=== PATIENT | female | born 1995 | race Caucasian/White ===

== ENCOUNTER → 2016-12-21 | Outpatient (CLI) | payer BC ==
[~2016-12-21] VITALS: Ht 162.6 cm; Wt 71.0 kg
[~2016-12-21] MED LIST: FLEXERIL5 MG PO; LO-DOSE ASPIRIN81 M2 PO; LOVENOX40 MG/0.4 SC; PRENATAL TABLE1 EAC3 PO; SERTRALINE HCL50 MG PO
[2016-12-21 15:56] VITALS: BP 128/80
== END | disposition home or self-care (01) ==
LOC: IVINF 15:48
DX: O36.0990 Maternal care for other rhesus isoimmunization, unspecified trimester, not applicable or unspecified (principal); Z3A.00 Weeks of gestation of pregnancy not specified
CPT/HCPCS: 96372; J2790

== ENCOUNTER 2017-01-26 16:26 | Emergency (ER) | payer OTHER, BC ==
[~2017-01-26] VITALS: Ht 162.6 cm; Wt 79.8 kg
[2017-01-26 16:50] LABS: HEMATOCRIT 35.7 % (36.0-46.0); MCHC 31.7 G/DL (30.0-36.0); MCV 82.3 FL (83-99); MEAN PLAT.VOLUME 9.9 uM^3 (9.5-12.4); PLATELET COUNT 273 K/uL (156-360); RBC DIS.WIDTH-CV 13.5 % (11.8-14.6); RBC DIS.WIDTH-SD 40.3 % (39-53); RED BLOOD COUNT 4.34 M/uL (3.80-5.20); WHITE BLOOD COUNT 12.1 K/uL (4.1-10.2)
[2017-01-26 17:10] LABS: CHLORIDE 108 mEq/L (99-109); POTASSIUM 3.6 mEq/L (3.7-5.4); SODIUM 137 mEq/L (136-147)
[2017-01-26 17:11] LABS: GLUCOSE 69 mg/dL (70-99)
[2017-01-26 17:13] LABS: ANION GAP 9 MEQ/L (2-14)
[2017-01-26 17:19] LABS: GFR ESTIMATE (CALCULATED) > 59 mL/min/; UREA NITROGEN (BUN) 6 mg/dL (9-23)
[2017-01-26 17:20] LABS: TROP-I INTERPRETATION NEGATIVE; TROPONIN-I < 0.01 ng/mL (0.0-0.30)
[2017-01-26 17:46] LABS: INTER. NORMALIZED RATIO 0.9; PTT 25.9 (25-32)
[2017-01-26 17:54] LABS: D-DIMER ELISA > 4.00 mg/L FEU (< 0.57)
[2017-01-26 17:55] LABS: PROTHROMBIN TIME 9.2 (9.2-11.2)
[2017-01-26 22:35] VITALS: BP 116/81
== END 2017-01-26 22:40 | disposition home or self-care (01) ==
LOC: EME 16:26
PROVIDERS: Emergency Medicine
DX: O99.013 Anemia complicating pregnancy, third trimester (principal); D64.9 Anemia, unspecified; O26.93 Pregnancy related conditions, unspecified, third trimester; R06.02 Shortness of breath; R07.9 Chest pain, unspecified; E87.6 Hypokalemia; D72.829 Elevated white blood cell count, unspecified; Z3A.34 34 weeks gestation of pregnancy; D68.2 Hereditary deficiency of other clotting factors; O99.113 Other diseases of the blood and blood-forming organs and certain disorders involving the immune mechanism complicating pregnancy, third trimester; Z88.6 Allergy status to analgesic agent; Z98.84 Bariatric surgery status; Z79.82 Long term (current) use of aspirin; Z79.01 Long term (current) use of anticoagulants
CPT/HCPCS: 71275; 80048; 84484; 85027; 85379; 85610; 85730; 93005; 93970; 99281; 99285; J7120

== ENCOUNTER 2017-02-09 17:12 | Outpatient (CLI) | payer OTHER, BC ==
[~2017-02-09] VITALS: Ht 162.6 cm; Wt 72.7 kg
[2017-02-09 17:35] VITALS: BP 119/77
[2017-02-09] MEDS ORDERED: IRON325 M1 PO (17:58)
[2017-02-09] MEDS ORDERED: [UNRECOGNIZED DRUG - OTHER] PO (18:06)
[2017-02-09 18:55] LABS: EOSINOPHIL (%) 0.6 % (0-5); EOSINOPHIL COUNT 0.1 K/uL (0-0.3); IMMATURE GRANULOCYTE (%) 0.4 % (0.0-0.7); INSTRUMENT ABS NEUTROPHIL CT 7.4 K/uL; MCH 25.7 PG (29.0-34.0); MCHC 31.8 G/DL (30.0-36.0); MCV 80.8 FL (83-99); MEAN PLAT.VOLUME 10.3 uM^3 (9.5-12.4); MONOCYTE (%) 7.3 % (3-12); MONOCYTE COUNT 0.8 K/uL (0-0.8); NEUTROPHIL (%) 72.4 % (45-76); NEUTROPHIL COUNT 7.4 K/uL (1.8-6.4); PLATELET COUNT 278 K/uL (156-360); RBC DIS.WIDTH-CV 13.6 % (11.8-14.6); RBC DIS.WIDTH-SD 39.5 % (39-53); RED BLOOD COUNT 4.21 M/uL (3.80-5.20); WHITE BLOOD COUNT 10.2 K/uL (4.1-10.2)
[2017-02-09 19:05] LABS: ANION GAP 10 MEQ/L (2-14); CHLORIDE 111 MEQ/L (99-109); POTASSIUM 3.7 MEQ/L (3.7-5.4); SAMPLE HEMOLYSIS CHECK 0; SAMPLE ICTERIC CHECK 0; SAMPLE LIPEMIA CHECK 0; SODIUM 139 MEQ/L (136-147); TOTAL BILIRUBIN 0.2 MG/DL (0.0-1.0)
[2017-02-09 19:10] VITALS: BP 140/90
[2017-02-09 19:10] LABS: ALKALINE PHOSPHATASE 105 IU/L (3-129); GFR ESTIMATE (CALCULATED) > 59 mL/min/; GLUCOSE 70 mg/dL (70-99); UREA NITROGEN (BUN) 8 mg/dL (9-23)
[2017-02-09 19:14] VITALS: BP 136/90
[2017-02-09 19:39] VITALS: BP 131/79
[2017-02-09 20:20] VITALS: BP 121/82
[2017-02-09 20:23] LABS: UR CREATININE CONCENTRATION 221.4 MG/DL
== END 2017-02-09 21:20 | disposition home or self-care (01) ==
LOC: LDRP-OP → 2WEST 17:13 → LDRP-OP 04-07 14:07
PROVIDERS: Midwife
DX: O36.8930 Maternal care for other specified fetal problems, third trimester, not applicable or unspecified (principal); O99.283 Endocrine, nutritional and metabolic diseases complicating pregnancy, third trimester; E72.12 Methylenetetrahydrofolate reductase deficiency; O99.213 Obesity complicating pregnancy, third trimester; E66.9 Obesity, unspecified; O99.843 Bariatric surgery status complicating pregnancy, third trimester; E55.9 Vitamin D deficiency, unspecified; O26.613 Liver and biliary tract disorders in pregnancy, third trimester; K76.0 Fatty (change of) liver, not elsewhere classified; Z3A.36 36 weeks gestation of pregnancy
CPT/HCPCS: 59025; 80053; 82570; 84156; 85025; G0378

== ENCOUNTER 2017-02-11 15:30 | Inpatient (IN) | payer OTHER, BC ==
[~2017-02-11] VITALS: Ht 162.6 cm; Wt 81.6 kg
[2017-02-11] VITALS (10 sets, daily range): BP systolic 119–160; BP diastolic 67–85
[~2017-02-11 15:30] MED LIST changes: +IRON325 M1 PO; +[UNRECOGNIZED DRUG - OTHER] PO
[2017-02-11 17:16] LABS: EOSINOPHIL (%) 0.5 % (0-5); EOSINOPHIL COUNT 0.1 K/uL (0-0.3); HEMATOCRIT 38.1 % (36.0-46.0); IMMATURE GRANULOCYTE (%) 0.5 % (0.0-0.7); IMMATURE GRANULOCYTE COUNT 0.1 K/uL; INSTRUMENT ABS NEUTROPHIL CT 9.3 K/uL; LYMPHOCYTE COUNT 2.5 K/uL (1.0-2.8); MCH 25.5 PG (29.0-34.0); MCHC 31.5 G/DL (30.0-36.0); MCV 80.9 FL (83-99); MEAN PLAT.VOLUME 10.1 uM^3 (9.5-12.4); MONOCYTE (%) 7.8 % (3-12); NEUTROPHIL COUNT 9.3 K/uL (1.8-6.4); PLATELET COUNT 286 K/uL (156-360); RBC DIS.WIDTH-CV 13.8 % (11.8-14.6); RBC DIS.WIDTH-SD 39.8 % (39-53); RED BLOOD COUNT 4.71 M/uL (3.80-5.20); WHITE BLOOD COUNT 12.9 K/uL (4.1-10.2)
[2017-02-11] MEDS ORDERED: IBUPROFEN800 MG PO (19:00)
[2017-02-12 03:51] VITALS: BP 123/72
[2017-02-12 07:31] VITALS: BP 124/79
[2017-02-12 15:56] VITALS: BP 127/82
[2017-02-12 22:56] VITALS: BP 130/77
[2017-02-13 07:44] VITALS: BP 121/81
[2017-02-13 14:45] VITALS: BP 126/84
== END 2017-02-13 17:20 | disposition home or self-care (01) | DRG 775 ==
LOC: LDRP-OP 15:30 → 2WEST 15:31 → LDRP-OP 04-07 22:08
PROVIDERS: Midwife
DX: O60.14X0 Preterm labor third trimester with preterm delivery third trimester, not applicable or unspecified (principal); E72.12 Methylenetetrahydrofolate reductase deficiency; D68.51 Activated protein C resistance; O99.12 Other diseases of the blood and blood-forming organs and certain disorders involving the immune mechanism complicating childbirth; O70.0 First degree perineal laceration during delivery; O69.81X0 Labor and delivery complicated by cord around neck, without compression, not applicable or unspecified; O99.284 Endocrine, nutritional and metabolic diseases complicating childbirth; Z3A.36 36 weeks gestation of pregnancy; Z37.0 Single live birth
CPT/HCPCS: 83030; 85025; 86850; 86870; 86900; 86901; J0595; J0702; J1050; J1650; J2540; J2790; J7120